=== PATIENT | male | born 1960 | race Caucasian/White ===

== ENCOUNTER 2020-06-21 17:59 | Emergency (ER) | payer SELFPAY ==
[~2020-06-21] VITALS: Ht 177.8 cm; Wt 70.8 kg
[2020-06-21 18:05] VITALS: BP 159/96
[2020-06-21] MEDS ORDERED: ALBUTEROL SULFATE/IPRATROPIU 3 ML SOL IH ONE (18:40)
[2020-06-21] MEDS ORDERED: KETOROLAC 30 MG/ML VIAL IVP ONE (18:40)
[2020-06-21] MEDS ORDERED: ASPIRIN 325 MG TAB PO ONE (18:40)
[2020-06-21] MEDS ORDERED: methylPREDNISolone SS 125 MG/2 ML VIAL IVP ONE (18:40)
[2020-06-21 19:02] LABS: BASOPHILS % (AUTO) 0.3 % (0.0-2.0); EOSINOPHILS # (AUTO) 0.3 K/uL (0-0.4); EOSINOPHILS % (AUTO) 3.1 % (0.0-4.0); HEMATOCRIT 43.8 % (36-52); LYMPHOCYTES # (AUTO) 1.5 K/uL (2.0-11.5); LYMPHOCYTES % (AUTO) 13.8 % (20.5-51.1); MEAN CORPUSCULAR HEMOGLOBIN 31 pg (27-31); MEAN CORPUSCULAR HGB CONC 34 g/dL (33-37); MEAN CORPUSCULAR VOLUME 89.4 fL (80-94); MONOCYTES % (AUTO) 9.1 % (1.7-9.3); NEUTROPHILS # (AUTO) 7.7 K/uL (1.8-7.7); NEUTROPHILS % (AUTO) 73.7 % (42.2-75.2); PLATELET COUNT (AUTO) 352 K/uL (140-450); RED CELL DISTRIBUTION WIDTH 14.1 % (11.6-13.7); WHITE BLOOD COUNT (AUTO) 10.5 K/uL (4.8-10.8)
[2020-06-21 19:09] LABS: PROTHROMBIN TIME 10.2 secs (10.8-13.4)
[2020-06-21 19:11] LABS: ALBUMIN 4.3 g/dL (3.4-5.0); ANION GAP 13.2 (8-16); CARBON DIOXIDE 25.9 mmol/L (21-32); CREATININE 0.9 mg/dL (0.6-1.3); POTASSIUM 4.1 mmol/L (3.5-5.1); TOTAL BILIRUBIN 0.6 mg/dL (0.0-1.0)
--- NOTE | 2020-06-21 19:13 | NUR ---
59 Y/O MALE BIB SELF C/O SOB X 2 DAYS. WHEEZING HEARD THROUGHOUT, SPO2 95% RA. PRESENCE OF COUGH WITH PRDUCTIVE YELLOW SPUTUM. DENIES NAUSEA/VOMITING, CHEST PAIN, PRESENCE OF BLOOD WHEN COUGHING. PT STATES HE SMOKES A PACK OF CIGARETTES A DAY. COVID VACCINE RECEIVED 2 DAYS AGO. PT ON MONITOR. AO4, SKIN WARM AND DRY. BED IN LOWEST POSITION, LOCKED, X1 SIDERAIL UP. PMH - UNSURE; PT POOR HISTORIAN DAYDAY
--- NOTE | 2020-06-21 19:19 | NUR ---
ENDORSEMENT GIVEN TO ANANYA QUINTANILLA AND ANANYA HILLIARD FOR TRANSFER OF CARE. CONTINUATION OF CRAE AT THIS POINT.
[2020-06-21] MEDS ORDERED: ATRMDI IH (22:21)
[2020-06-21] MEDS ORDERED: BUPR150T12 PO (22:21)
[2020-06-21] MEDS ORDERED: AMOX-1000 PO (22:21)
[2020-06-21] MEDS ORDERED: ALBU0.0912 IH (22:21)
[2020-06-21] MEDS ORDERED: AZIT250T11 PO (22:21)
[2020-06-21] MEDS ORDERED: PRED20TA5 PO (22:21)
[2020-06-21 22:40] VITALS: BP 127/87
--- NOTE | 2020-06-21 22:40 | NUR ---
Patient discharged with v/s stable. Written and verbal after care instructions given and explained. Patient alert, oriented and verbalized understanding of instructions. Ambulatory with steady gait. All questions addressed prior to discharge. ID band removed. Patient advised to follow up with PMD. Rx of BUPROPION, AMOXICILLIN, AZITHROMYCIN, ATROVENT, VENTOLIN, PREDNISONE given. Patient educated on indication of medication including possible reaction and side effects. Opportunity to ask questions provided and answered.
== END 2020-06-21 22:40 | disposition home or self-care (01) ==
LOC: MED 17:59
DX: J44.1 Chronic obstructive pulmonary disease with (acute) exacerbation (principal); R09.1 Pleurisy; F17.210 Nicotine dependence, cigarettes, uncomplicated; Z79.899 Other long term (current) drug therapy; Z71.6 Tobacco abuse counseling
CPT/HCPCS: 36415; 36600; 71045; 80053; 82803; 83880; 84484; 85025; 85610; 85730; 93005; 94640; 96374; 96375; 99285; J1885; J2930

== ENCOUNTER 2021-07-10 13:38 | Emergency (ER) | payer MEDICAID, OTHER ==
[~2021-07-10] VITALS: Ht 177.8 cm; Wt 68.0 kg
[~2021-07-10 13:38] MED LIST: ALBU0.0912 IH; AMOX-1000 PO; ATRMDI IH; AZIT250T11 PO; BUPR150T12 PO; PRED20TA5 PO
[2021-07-10 13:41] VITALS: BP 157/100
--- NOTE | 2021-07-10 13:46 | NUR ---
W/C ASSISTED TO BED 11
--- NOTE | 2021-07-10 13:55 | NUR ---
60 Y/O MALE HAS LABORED BREATHING AND SHORTNESS OF BREATH WITH EXPIRATORY WHEEZING AND STATES SYMPTOMS STARTED 5 DAYS AGO AFTER HAVING COVID BOOSTER. HIS SYMPTOMS STARTED WORSENING WHICH BROUGHT HIM IN TODAY. HE DENIES SMOKING CURRENTLY, FORMER SMOKER. HE HAS A HISTORY OF COPD.
[2021-07-10] MEDS ORDERED: ALBUTEROL SULFATE/IPRATROPIU 3 ML SOL IH ONE ×2 (14:30→15:45)
[2021-07-10] MEDS ORDERED: ALBUTEROL 0.083% 2.5 MG/3 ML NEBU INH ONE ×2 (14:30→15:45)
--- NOTE | 2021-07-10 14:40 | NUR ---
[facility] GIVEN ORDERED ENCOURAGED PATIENT FOR INTERMITTENT DEEP BREATH AND COUGH
[2021-07-10] MEDS ORDERED: ALBU0.0912 IH (15:45)
[2021-07-10] MEDS ORDERED: predniSONE 20 MG TAB PO ONE (15:45)
[2021-07-10] MEDS ORDERED: PRED20TA5 PO (15:45)
[2021-07-10] MEDS ORDERED: ATRMDI IH (15:45)
--- NOTE | 2021-07-10 15:51 | NUR ---
RT AT BEDSIDE
--- NOTE | 2021-07-10 16:49 | NUR ---
Patient discharged with v/s stable. Written and verbal after care instructions given and explained. Patient alert, oriented and verbalized understanding of instructions. Ambulatory with steady gait. All questions addressed prior to discharge. ID band removed. Patient advised to follow up with PMD. Rx of PROVENTIL HFA MDI, ATROVENT HFA MDI, AND PREDNISONE given. Patient educated on indication of medication including possible reaction and side effects. Opportunity to ask questions provided and answered.
[2021-07-10 16:51] VITALS: BP 122/76
== END 2021-07-10 16:49 | disposition home or self-care (01) ==
LOC: MED 13:38
DX: J44.1 Chronic obstructive pulmonary disease with (acute) exacerbation (principal); Z98.890 Other specified postprocedural states; Z79.899 Other long term (current) drug therapy; Z79.2 Long term (current) use of antibiotics
CPT/HCPCS: 94640; 99285; J7512; J7613

== ENCOUNTER 2022-01-28 05:09 | Emergency (ER) | payer OTHER ==
[~2022-01-28] VITALS: Ht 177.8 cm; Wt 70.3 kg
[~2022-01-28 05:09] MED LIST changes: -AMOX-1000 PO; -ATRMDI IH; -AZIT250T11 PO; +BECL10.62 INH; -BUPR150T12 PO; +TIOT4MIS2 IH; +VARE1TAB34 PO
[2022-01-28 05:11] VITALS: BP 147/93
--- NOTE | 2022-01-28 05:30 | NUR ---
pt is coming in with chest pain brought by ambulance. pt alert and oriented x4. pt si on nasla [place] 2 L
[2022-01-28] MEDS ORDERED: ONDANSETRON 4 MG/2 ML VIAL IVP ONE (06:10)
[2022-01-28] MEDS ORDERED: NACL 0.9% 500 ML IV ONE (06:10)
[2022-01-28] MEDS ORDERED: MORPHINE SULFATE 4 MG/ML SYR IVP ONE (06:10)
[2022-01-28] MEDS ORDERED: ACETAMINOPHEN 325 MG TAB PO ONE (06:20)
--- NOTE | 2022-01-28 06:32 | NUR ---
PT TAKEN TO CT
[2022-01-28 06:41] LABS: BASOPHILS # (AUTO) 0.1 K/uL (0.00-0.22); BASOPHILS % (AUTO) 0.5 % (0.0-2.0); EOSINOPHILS # (AUTO) 0.5 K/uL (0-0.4); EOSINOPHILS % (AUTO) 3.3 % (0.0-4.0); HEMATOCRIT 39.2 % (36-52); LYMPHOCYTES # (AUTO) 1.9 K/uL (2.0-11.5); LYMPHOCYTES % (AUTO) 12.6 % (20.5-51.1); MEAN CORPUSCULAR HEMOGLOBIN 30 pg (27-31); MEAN CORPUSCULAR HGB CONC 33 g/dL (33-37); MEAN CORPUSCULAR VOLUME 91.1 fL (80-94); MONOCYTES # (AUTO) 0.9 K/uL (0.8-1.0); MONOCYTES % (AUTO) 6.1 % (1.7-9.3); NEUTROPHILS # (AUTO) 11.7 K/uL (1.8-7.7); NEUTROPHILS % (AUTO) 77.5 % (42.2-75.2); PLATELET COUNT (AUTO) 362 K/uL (140-450); RED BLOOD CELL COUNT(AUTO) 4.31 MIL/uL (4.20-6.10); WHITE BLOOD COUNT (AUTO) 15.1 K/uL (4.8-10.8)
--- NOTE | 2022-01-28 06:45 | NUR ---
PT RETURN FROM CT
[2022-01-28 06:54] LABS: ALBUMIN 3.5 g/dL (3.4-5.0); ANION GAP 7.7 (8-16); CARBON DIOXIDE 28.2 mmol/L (21-32); CREATININE 0.8 mg/dL (0.6-1.3); POTASSIUM 3.9 mmol/L (3.5-5.1); TOTAL BILIRUBIN 0.2 mg/dL (0.0-1.0)
--- NOTE | 2022-01-28 08:14 | NUR ---
REGLA COLLECTED AND SENT TO LAB
[2022-01-28] MEDS ORDERED: LOSA100T1 PO (08:25)
[2022-01-28] MEDS ORDERED: BUDE10.7 IH (08:25)
[2022-01-28] MEDS ORDERED: PRED5TAB7 PO (08:25)
[2022-01-28] MEDS ORDERED: [UNRECOGNIZED DRUG - CODE] PO (08:25)
[2022-01-28] MEDS ORDERED: ATOM18CA PO (08:25)
[2022-01-28] MEDS ORDERED: OMEP40EC24 PO (08:25)
--- NOTE | 2022-01-28 08:25 | NUR ---
MED REC COMPLETED. PT HOME MED PLACED IN BAG AND SENT TO PHARMACY.
[2022-01-28 09:11] VITALS: BP 108/69
--- NOTE | 2022-01-28 10:20 | NUR ---
Patient does not wish to proceed with medical care recommended by dr Carlisle. Patient given information related to possible complications, up to and including , which could occur as a result of leaving hospital at this time. Patient verbalizes understanding of risks involved leaving against medical advice. Patient has signed AMA form. pt home med retrieved from pharmacy and given to patient upon dc.
--- NOTE | 2022-01-29 14:35 | NUR ---
LATE ENTRY-IVP/IM/IVF
== END 2022-01-28 10:20 | disposition left against medical advice (07) ==
LOC: MED 05:09
DX: R07.9 Chest pain, unspecified (principal); Z20.822 Contact with and (suspected) exposure to COVID-19; R11.0 Nausea; J44.9 Chronic obstructive pulmonary disease, unspecified; Z79.899 Other long term (current) drug therapy
CPT/HCPCS: 36415; 70450; 71045; 80053; 83880; 84484; 85025; 87426; 96361; 96374; 99285; J2405; J2270; J7030